=== PATIENT | male | born 2000 | race Caucasian/White ===

== ENCOUNTER 2022-06-23 22:39 | Emergency (ER) | payer SELFPAY ==
[~2022-06-23] VITALS: Ht 175.3 cm; Wt 70.5 kg
[2022-06-24 04:30] VITALS: BP 125/73
== END 2022-06-24 04:45 | disposition home or self-care (01) ==
LOC: ER 22:53
DX: B34.9 Viral infection, unspecified (principal)
CPT/HCPCS: 71045; 99283